=== PATIENT | male | born 1980 | race African-American/Black ===

== ENCOUNTER 2022-12-23 16:11 | Emergency (ER) | payer OTHER ==
--- NOTE | 2022-12-23 18:14 | RAD REPORT ---
EXAM DESCRIPTION: RAD - Knee Right 3 View - 12/23/2022 5:32 pm CLINICAL HISTORY: Pain COMPARISON: None. TECHNIQUE: Three views of the right knee. FINDINGS: No fracture, dislocation or periosteal reaction.No joint effusion seen. No joint space gutierrez rowing. No soft tissue abnormality. Clinical concerns for internal derangement or occult bony injury could be further assessed with MR im aging. IMPRESSION: Negative right knee.
--- NOTE | 2022-12-23 18:14 | RAD REPORT ---
EXAM DESCRIPTION: RAD - Tib Fib Left - 12/23/2022 5:32 pm CLINICAL HISTORY: Pain COMPARISON: None. TECHNIQUE: Two views of the left tibia and fibula. FINDINGS: No fracture is identified. There is no dislocation or periosteal reaction noted. No foreign body or other soft tissue abnormalit y. IMPRESSION: Negative left tibia & fibula radiographs.
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
[2022-12-23 19:25] VITALS: BP 110/76; TEMP 98.3; O2SAT 97
== END 2022-12-23 19:03 | disposition home or self-care (01) ==
LOC: ER 16:11
DX: S80.812A Abrasion, left lower leg, initial encounter (principal); M25.561 Pain in right knee

== ENCOUNTER 2023-01-01 09:41 | Emergency (ER) | payer OTHER ==
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
--- NOTE | 2023-01-01 10:12 | ER ---
Nurse's Notes [facility] Name: Lata Tang Age: 42 yrs Sex: Male : 1980 Arrival Date: 01/01/2023 Time: 09:45 Bed 12 Private MD: Diagnosis: Pain in right knee Presentation: 01/01 09:50 Chief complaint: Patient states: knee pain and reports was seen here recently for knee aa5 pain. 09:50 Coronavirus screen: At this time, the client does not indicate any symptoms associated aa5 with coronavirus-19. Ebola Screen: Patient denies travel to an Ebola-affected area in the 21 days before illness onset. Risk Assessment: Do you want to hurt yourself or someone else? Patient reports no desire to harm self or others. Onset of symptoms was 2022. 09:50 Acuity: MINI 4 aa5 09:50 Method Of Arrival: Ambulatory aa5 - Family history:: not pertinent. - Hospitalizations: : No recent hospitalization is reported. Vital Signs: 10:14 BP 136 / 78; Pulse 79; Resp 16; Temp 98.0; Pulse Ox 100% on R/A; iw ED Course: 09:45 Patient arrived in ED. mr 09:47 Prashanth Abel MD is Attending Physician. rn 09:49 Arm band placed on. aa5 10:08 Triage completed. aa5 10:14 aZbrina Jackson, JOSELINE is Primary Nurse. iw Administered Medications: No medications were administered Outcome: 10:12 Discharge ordered by . rn 10:14 Patient left the ED. iw Signatures: Nadine Lopez mr Zabrina Jackson RN RN Prashanth Abel MD MD rn Calderon, Audri, RN RN aa
== END 2023-01-01 10:14 | disposition home or self-care (01) ==
LOC: ER 09:41
DX: M25.561 Pain in right knee (principal)
CPT/HCPCS: 99281